=== PATIENT | male | born 1995 ===

== ENCOUNTER 2017-10-02 09:56 | Emergency (ER) | payer OTHER ==
[2017-10-02 10:46] VITALS: BP 136/71; PULSE 67; RESP 18; TEMP 97; O2SAT 99
[2017-10-02] MEDS ORDERED: Alum-Mag Hydrox-Simethicone Susp (30 mL) PO STA (10:58)
[2017-10-02 11:40] LABS: BASO # 0.1 K/uL (0.0-0.2); BASO % 0.9 % (0.0-2.0); EOS # 0.2 K/uL (0.0-0.7); EOS % 3.3 % (0.0-4.0); HEMATOCRIT 48.1 % (35.0-51.0); LYMPH % 32.8 % (20.0-40.0); MEAN CELL VOLUME 85.3 fl (80.0-94.0); MEAN CORPUSCULAR HEMOGLOBIN 28.4 pg (27.0-31.0); MEAN CORPUSCULAR HGB CONC 33.3 g/dL (33.0-37.0); MEAN PLATELET VOLUME 9.6 fl (7.2-11.7); MONO # 0.5 K/uL (0.0-0.8); MONO % 8.6 % (0.0-10.0); NEUT # 3.3 K/uL (1.8-7.0); NEUT % 54.4 % (50.0-75.0); NRBC % 0.1 % (0.0-0.0); RED CELL DISTRIBUTION WIDTH 13.3 % (11.5-14.5); WHITE BLOOD COUNT 6.1 K/uL (4.8-10.8)
[2017-10-02 11:46] LABS: ALB/GLOB RATIO 1.4 (1.0-2.1); ALKALINE PHOSPHATASE 67 U/L (38-126); ALT/SGPT 40 U/L (21-72); AST/SGOT 27 U/L (17-59); BILIRUBIN,TOTAL 0.7 mg/dl (0.2-1.3); BLOOD UREA NITROGEN 17 mg/dl (9-20); CALCIUM 8.9 mg/dL (8.4-10.2); CARBON DIOXIDE 33 mmol/L (22-30); CHLORIDE 102 mmol/L (98-107); GFR AFRICAN-AMERICAN > 60; GLUCOSE,RANDOM 88 mg/dL (75-110); LIPASE 164 U/L (23-300); POTASSIUM 4.3 MMOL/L (3.6-5.0); SODIUM 142 mmol/l (132-148); TOTAL PROTEIN 7.4 G/DL (6.3-8.2)
[2017-10-02] MEDS ORDERED: Alum-Mag Hydrox-Simethicone Susp (30 mL) ONE (12:12)
--- NOTE | 2017-10-02 12:35 | ED PDOC ---
HPI: Abdomen Time Seen by Provider: 10/02/17 10:29 Chief Complaint (Nursing): Abdominal Pain Chief Complaint (Provider): Abdominal Pain History Per: Patient History/Exam Limitations: no limitations Onset/Duration Of Symptoms: Days (x2 weeks), Intermittent Episodes Current Symptoms Are (Timing): Still Present Severity: Mild Pain Scale Rating Of: 8 Location Of Pain/Discomfort: Epigastric Quality Of Discomfort: Burning Associated Symptoms: denies: Fever, Vomiting, Diarrhea Exacerbating Factors: Food, Other (at night) Additional Complaint(s): Saji Harris is a 21 year old male, with no past medical history , who present to the emergency department complaining of an intermittent epigastric pain onset for 2 weeks. Patient describes the pain as a burning sensation and discomfort in the whole abdomen. He states the pain happens at night and when he eats. Patient did not take any medications for it. He denies any fever, vomit or diarrhea. No further medical complaints. PMD: None provided. Past Medical History Reviewed: Historical Data, Nursing Documentation, Vital Signs Vital Signs: Last Vital Signs Temp 97 F L 10/02/17 10:43 Pulse 67 10/02/17 10:43 Resp 18 10/02/17 10:43 BP 136/71 10/02/17 10:43 Pulse Ox 99 10/02/17 12:41 - Family History Family History: States: Unknown Family Hx - Social History Current smoker - smoking cessation education provided: No Alcohol: Occasional Drugs: Denies - Home Medications Home Medications: Ambulatory Orders Medication Instructions Recorded Famotidine [Pepcid] 20 mg PO DAILY #14 tab 10/02/17 - Allergies Allergies/Adverse Reactions: Allergies Allergy/AdvReac Type Severity Reaction Status Date / Time No Known Allergies Allergy Verified 10/02/17 10:42 Review of Systems ROS Statement: Except As Marked, All Systems Reviewed And Found Negative Constitutional: Negative for: Fever Gastrointestinal: Positive for: Abdominal Pain (epigastric burning). Negative for: Vomiting, Diarrhea Physical Exam - Reviewed Nursing Documentation Reviewed: Yes Vital Signs Reviewed: Yes - Physical Exam Appears: Positive for: Well, Non-toxic, No Acute Distress Head Exam: Positive for: ATRAUMATIC, NORMAL INSPECTION, NORMOCEPHALIC Skin: Positive for: Normal Color, Warm, Dry Eye Exam: Positive for: EOMI, Normal appearance, PERRL Neck: Positive for: Normal, Painless ROM, Supple Cardiovascular/Chest: Positive for: Regular Rate, Rhythm. Negative for: Murmur Respiratory: Positive for: Normal Breath Sounds. Negative for: Respiratory Distress Gastrointestinal/Abdominal: Positive for: Tenderness (epigastric). Negative for : Other (Right lower quadrant non tender) Back: Positive for: Normal Inspection. Negative for: L CVA Tenderness, R CVA Tenderness Extremity: Positive for: Normal ROM. Negative for: Deformity, Swelling Neurologic/Psych: Positive for: Alert, Oriented - Laboratory Results Result Diagrams: 10/02/17 11:10 10/02/17 11:10 - ECG O2 Sat by Pulse Oximetry: 99 (RA) Pulse Ox Interpretation: Normal - Progress Re-evaluation Time: 14:35 Condition: Re-examined, Improved Medical Decision Making Medical Decision Making: Initial Impression: epigastric pain, gastritis, pancreatitis, GERD. Initial Plan: --CBC w/ differential --Lipase --Drug screen, urine --Comp metabolic Panel --Maalox Plus 30 ml PO --Pepcid 20 mg IVP --Lidocaine 2% Viscous 15 ml PO --reevaluation Scribe Attestation: Documented by Jose Krueger, acting as a scribe for Martinez Mcclelland MD Provider Scribe Attestation: All medical record entries made by the Scribe were at my direction and personally dictated by me. I have reviewed the chart and agree that the record accurately reflects my personal performance of the history, physical exam, medical decision making, and the department course for this patient. I have also personally directed, reviewed, and agree with the discharge instructions and disposition. Disposition - Clinical Impression Clinical Impression: Abdominal pain - Patient ED Disposition Is Patient to be Admitted: No Doctor Will See Patient In The: Office Counseled Patient/Family Regarding: Studies Performed, Diagnosis, Need For Followup - Disposition Referrals: [facility] [Outside] Disposition: Routine/Home Disposition Time: 14:35 Condition: GOOD Additional Instructions: Return for worsening. Follow up with your PCP in 2-3 days. Prescriptions: Famotidine [Pepcid] 20 mg PO DAILY #14 tab Instructions: Gastritis (ED) Print Language: BENGALI
== END 2017-10-02 14:50 | disposition home or self-care (01) ==
LOC: H.ER 09:56
DX: K29.70 Gastritis, unspecified, without bleeding (principal); K21.9 Gastro-esophageal reflux disease without esophagitis

== ENCOUNTER 2018-05-07 13:10 | Emergency (ER) | payer OTHER ==
[2018-05-07 13:20] VITALS: O2SAT 99
--- NOTE | 2018-05-07 13:44 | ED PDOC ---
HPI: Wound Care - HPI Time Seen by Provider: 05/07/18 13:30 Chief Complaint (Nursing): Abnormal Skin Integrity Chief Complaint (Provider): Wound Care History Per: Patient History Of Present Illness: 22 year old male presents to the emergency department with a laceration to his left index finger. Patient states that yesterday he cut his finger around 9 am but was unable to come into the ED to be evaluated because of work. He states that he placed coffee grounds in the wound to stop the bleeding. Tetanus updated two months ago. FAMILY PROVIDER,NO Exam Limitations: no limitations Onset/Duration Of Symptoms: Days Current Symptoms Are (Timing): Still Present Past Medical History Reviewed: Historical Data, Nursing Documentation, Vital Signs Vital Signs: Last Vital Signs Temp 97.0 F L 05/07/18 13:17 Pulse 52 L 05/07/18 13:17 Resp 16 05/07/18 13:17 BP 107/71 05/07/18 13:17 Pulse Ox 99 05/07/18 13:17 - Medical History PMH: No Chronic Diseases Denies: Chronic Kidney Disease - Surgical History Surgical History: No Surg Hx - Family History Family History: States: Unknown Family Hx - Home Medications Home Medications: Ambulatory Orders Medication Instructions Recorded Famotidine [Pepcid] 20 mg PO DAILY #14 tab 10/02/17 Cephalexin [Keflex] 500 mg PO QID #20 capsule 05/07/18 - Allergies Allergies/Adverse Reactions: Allergies Allergy/AdvReac Type Severity Reaction Status Date / Time No Known Allergies Allergy Verified 05/07/18 13:17 Review of Systems Constitutional: Negative for: Fever, Chills Musculoskeletal: Positive for: Other (laceration to left index finger) Physical Exam - Reviewed Nursing Documentation Reviewed: Yes Vital Signs Reviewed: Yes - Physical Exam Appears: Positive for: Non-toxic, No Acute Distress Skin: Positive for: Normal Color, Warm, Dry. Negative for: Rash Extremity: Positive for: Other (2cm laceration to distal tip of volar surface of index finger on the distal phalanx). Negative for: Tenderness, Deformity, Swelling Neurologic/Psych: Positive for: Alert, Oriented - ECG O2 Sat by Pulse Oximetry: 99 (RA) Pulse Ox Interpretation: Normal Procedure: Wound Repair - Time Performed Time Performed: 13:30 - Time Out Time Out: Side verified, Site verified, Patient ID confirmed, Sterile procedures obs. - Consent Obtained Consent obtained: Verbal - Indications Indication(s):: Laceration - Location Finger:: Left, Index Dimensions Length cm: 2cm - Debris Debris:: None - Complexity Complexity:: Simple (one layer) - Patient tolerated procedure Patient Tolerated Procedure:: Well Medical Decision Making Medical Decision Makin Initial Impression 22 year old male presenting with laceration to left index finger Initial Plan: * Reevaluation 1345 steri strips placed on wound with non adherent dressing. JORGITO DE LA CRUZ, thank you for letting us take care of you today. Your provider was Ken Tristan MD and you were treated for LT FINGER INJURY. The emergency medical care you received today was directed at your acute symptoms. If you were prescribed any medication, please fill it and take as directed. It may take several days for your symptoms to resolve. Return to the Emergency Department if your symptoms worsen, do not improve, or if you have any other problems. Please contact your doctor or call one of the physicians/clinics you have been referred to that are listed on the Patient Visit Information form that is included in your discharge packet. Bring any paperwork you were given at discharge with you along with any medications you are taking to your follow up visit. Our treatment cannot replace ongoing medical care by a primary care provider outside of the emergency department. Thank you for allowing the [facility] team to be part of your care today. Documented by Mel Oneill acting as a scribe for Berto Villegas PA-C. All medical record entries made by the Scribe were at my direction and personally dictated by me. I have reviewed the chart and agree that the record accurately reflects my personal performance of the history, physical exam, medical decision making, and the department course for this patient. I have also personally directed, reviewed, and agree with the discharge instructions and disposition. Disposition - Clinical Impression Clinical Impression: Finger laceration - Patient ED Disposition Is Patient to be Admitted: No Counseled Patient/Family Regarding: Studies Performed - Disposition Disposition: Routine/Home Disposition Time: 13:45 Condition: FAIR Additional Instructions: [facility] EN 2-3 [place] PAR[facility] REVISAR HERIDA Prescriptions: Cephalexin [Keflex] 500 mg PO QID #20 capsule Instructions: Wound Care (DC) Forms: [facility] (Greek), [facility] ED School/Work Excuse - POA Present On Arrival: None
[2018-05-07 15:18] VITALS: BP 122/70; PULSE 78; RESP 18; TEMP 98
== END 2018-05-07 15:17 | disposition home or self-care (01) ==
LOC: H.ER 13:10
DX: S61.211A Laceration without foreign body of left index finger without damage to nail, initial encounter (principal); W26.8XXA Contact with other sharp object(s), not elsewhere classified, initial encounter; Y92.89 Other specified places as the place of occurrence of the external cause